=== PATIENT | female | born 1945 | race Caucasian/White ===

== ENCOUNTER 2019-09-28 06:40 | Inpatient (IN) ==
[2019-09-25 10:15] LABS: Basophils % 0.4 % (0.0-0.8); Eosinophils # 0.1 10*3/uL (0.0-0.87); Eosinophils % 1.7 % (0.00-10.9); Hematocrit 35.9 VOL% (35.7-47.0); Hemoglobin 11.1 GM/DL (12.0-16.0); Immature Granulocytes % 0.3 %; Immature Granulocytes Absolute 0.02 #; Lymphocytes # 2.4 10*3/uL (1.4-4.0); Lymphocytes % 30.2 % (21.3-54.2); Mean Corpuscular HGB Conc 30.9 GM/DL (32-36); Mean Corpuscular Volume 86.1 FL (87-102); Mean Platelet Volume 10.2 FL (9.6-12.0); Monocytes % 7.6 % (1.7-12.7); Neutrophils % 59.8 % (38.7-73.9); Platelet Count 284 T/CUMM (130-400); Red Blood Count 4.17 MC/CUMM (3.8-5.5); Red Cell Distribution Width 14.2 % (9.3-17.3); White Blood Count 7.8 T/CUMM (4-12)
[2019-09-25 10:31] LABS: Calcium 9.1 MG/DL (8.5-10.1)
[~2019-09-28 06:40] MED LIST: ALVIMOPAN 12 MG CAPSULE PO ONE; ERTAPENEM 1,000 MG in SODIUM CHLORIDE 0.9% 100 ML IV ONE
[2019-09-28] MEDS ORDERED: LACTATED RINGERS 1,000 ML IV SCH (07:00)
[2019-09-28] MEDS ORDERED: ERTAPENEM 1,000 MG VIAL ONE (07:16)
[2019-09-28] MEDS ORDERED: ALVIMOPAN 12 MG CAPSULE ONE (07:16)
[2019-09-28] MEDS ORDERED: SCOPOLAMINE 1.5 MG PATCH TRANSDERM STA (09:10)
[2019-09-28] MEDS ORDERED: INDOCYANINE GREEN 25 MG VIAL IV ONE (09:53)
[2019-09-28] MEDS ORDERED: TISSUE ADHESIVE 1 EACH APPLICATOR TOP ONE (09:53)
[2019-09-28] MEDS ORDERED: propofoL 200 MG/20 ML VIAL IV ONE (12:51)
[2019-09-28] MEDS ORDERED: ROPIVACAINE 0.5% 30 ML VIAL ONE (12:51)
[2019-09-28] MEDS ORDERED: MIDAZOLAM 2 MG/2 ML VIAL ONE (12:51)
[2019-09-28] MEDS ORDERED: SEVOFLURANE 1 UNIT/15 MINUTE INH ONE (12:51)
[2019-09-28] MEDS ORDERED: LIDOCAINE 2% 5 ML VIAL ONE (12:51)
[2019-09-28] MEDS ORDERED: ONDANSETRON 4 MG/2 ML VIAL ONE (12:52)
[2019-09-28] MEDS ORDERED: ROCURONIUM 100 MG/10 ML VIAL IV ONE (12:52)
[2019-09-28] MEDS ORDERED: LACTATED RINGERS 1,000 ML IV ONE (12:52)
[2019-09-28] MEDS ORDERED: DEXAMETHASONE 4 MG/1 ML VIAL ONE (12:52)
[2019-09-28] MEDS ORDERED: PHENYLEPHRINE 10 MG/1 ML VIAL IV ONE (12:52)
[2019-09-28] MEDS ORDERED: fentaNYL 100 MCG/2 ML VIAL ONE (12:52)
[2019-09-28] MEDS ORDERED: HYDROmorphone 2 MG/1 ML VIAL ONE (13:24)
[2019-09-28] MEDS: HYDROmorphone 2 MG/1 ML VIAL IV PRN ×3 (13:25→13:40)
[2019-09-28] MEDS ORDERED: ONDANSETRON 4 MG/2 ML VIAL IV PRN ×2 (13:26→15:59)
[2019-09-28] MEDS ORDERED: HYDROmorphone 2 MG/1 ML VIAL IV PRN (15:59)
[2019-09-28] MEDS: KETOROLAC 30 MG/1 ML VIAL IV SCH ×2 (16:09→22:11)
[2019-09-28 17:08] LABS: Basophils % 0.2 % (0.0-0.8); Hematocrit 38.7 VOL% (35.7-47.0); Hemoglobin 11.8 GM/DL (12.0-16.0); Immature Granulocytes % 0.4 %; Immature Granulocytes Absolute 0.05 #; Lymphocytes # 0.3 10*3/uL (1.4-4.0); Lymphocytes % 2.5 % (21.3-54.2); Mean Corpuscular HGB Conc 30.5 GM/DL (32-36); Mean Corpuscular Volume 86.4 FL (87-102); Mean Platelet Volume 10.6 FL (9.6-12.0); Monocytes % 4.3 % (1.7-12.7); Neutrophils % 92.6 % (38.7-73.9); Platelet Count 159 T/CUMM (130-400); Red Blood Count 4.48 MC/CUMM (3.8-5.5); Red Cell Distribution Width 14.3 % (9.3-17.3); White Blood Count 12.8 T/CUMM (4-12)
[2019-09-28 17:39] LABS: Band Neutrophils 9 % (0-10); Lymphocytes 3 % (20-55); Platelet Estimate Normal; Segmented Neutrophils 87 % (50-85); Total Cells Counted 100
[2019-09-28 18:12] LABS: Calcium 8.5 MG/DL (8.5-10.1); Osmolality,Calculated 272.1 MOS/KG (273-304)
[2019-09-28] MEDS: LACTATED RINGERS 1,000 ML IV SCH (18:40)
[2019-09-28] MEDS: ALVIMOPAN 12 MG CAPSULE PO SCH (20:35)
[2019-09-29] MEDS: LACTATED RINGERS 1,000 ML IV SCH (03:44)
[2019-09-29] MEDS: KETOROLAC 30 MG/1 ML VIAL IV SCH ×2 (04:43→09:33)
[2019-09-29 05:24] LABS: Basophils % 0.1 % (0.0-0.8); Hematocrit 30.7 VOL% (35.7-47.0); Hemoglobin 9.5 GM/DL (12.0-16.0); Immature Granulocytes Absolute 0.16 #; Lymphocytes # 1.7 10*3/uL (1.4-4.0); Lymphocytes % 10.6 % (21.3-54.2); Mean Corpuscular HGB Conc 30.9 GM/DL (32-36); Mean Platelet Volume 10.7 FL (9.6-12.0); Monocytes % 5.2 % (1.7-12.7); Neutrophils % 83.1 % (38.7-73.9); Platelet Count 218 T/CUMM (130-400); Red Blood Count 3.57 MC/CUMM (3.8-5.5); Red Cell Distribution Width 14.4 % (9.3-17.3); White Blood Count 16.2 T/CUMM (4-12)
[2019-09-29 05:44] LABS: Hypochromasia 1+; Lymphocytes 8 % (20-55); Platelet Estimate Adequate; Segmented Neutrophils 85 % (50-85); Total Cells Counted 100
[2019-09-29 06:05] LABS: Osmolality,Calculated 273.1 MOS/KG (273-304)
[2019-09-29] MEDS ORDERED: ENOXAPARIN 40 MG/0.4 ML SYRINGE SUBCUT SCH (06:34)
[2019-09-29] MEDS ORDERED: CETIRIZINE 10 MG TABLET PO SCH (09:00)
[2019-09-29] MEDS ORDERED: ASCORBIC ACID 500 MG TABLET PO SCH (09:00)
[2019-09-29] MEDS ORDERED: MULTIVITAMIN (BEROCCA) TABLET PO SCH (09:00)
[2019-09-29] MEDS ORDERED: PANTOPRAZOLE 40 MG TABLET PO SCH (09:00)
[2019-09-29] MEDS: ALVIMOPAN 12 MG CAPSULE PO SCH (09:32)
[2019-09-29 11:50] VITALS: BP 127/40
[2019-09-29 12:17] LABS: Hemoglobin 9.6 GM/DL (12.0-16.0)
== END 2019-09-29 14:50 | disposition home or self-care (01) | DRG 330 ==
LOC: N.OR 06:40 → N.SDSINP 06:40 → N.3E 06:41 → N.OR 09-29 14:50 → N.3E 10-02 08:44
PROVIDERS: ADMIT Surgery; ATTEND Surgery